=== PATIENT | male | born 1965 | race Caucasian/White ===

== ENCOUNTER 2023-08-11 11:23 | Emergency (ER) | payer MEDICARE, SELFPAY ==
[2023-08-11 11:23] VITALS: BMI 27.8
[2023-08-11 11:32] VITALS: BP 142/78
--- NOTE | 2023-08-11 13:23 | ED.GENMED ---
History of Present Illness
<BLAZE Menezes Last Filed: 08/11/23 20:23>
General
Chief Complaint: Eye Problems
Source: patient
Exam Limitations: none
Time Seen by Provider: 08/11/23 12:34
Nursing documentation reviewed up to this point in time: agreed with
History of Present Illness
History of Present Illness:
58 y/o M IDDM
HTN, bipolar disorder
here with pain and swelling of left eye x 2 days
says it started mildly in the middle of the night 2 night sago and has progressed to be moderate pain today with inability to open his left eye, surrounding swelilng
thought maybe it was allergies becuase it started with somem congestion in his sinuses on that side so he did take 2 doses of benadryl yesterday without improvement
he went to urgent care today and was sent in
no fever, chills
+ dipolopia with certain eye movements which are also painful
he has not had any headache, neck stiffness
no corrective lens use
sees double with looking up and laterally
Past History
<BLAZE Menezes Last Filed: 08/11/23 20:23>
Past History
ED Past Medical History: HTN, NIDDM and Psychiatric (bipolar)
ED Past Surgical History: Cholecystectomy, Orthopedic (lumbar discectomy) and Other (Gastric bypass)
Social History
Tobacco: Smoker
Alcohol: None
Drug: None
Personal:
Living: with family
Employment: Not employed
Family History
Family History: Other (Noncontributory)
Review of Systems
<BLAZE Menezes Last Filed: 08/11/23 20:23>
Review of Systems
Allergies reviewed?: Yes
All Other Systems: Not applicable
Phy Exam
<BLAZE Menezes Filed: 08/11/23 20:23>
Physical Exam
Physical Exam:
GENERAL: Alert , in no apparent distress
HEAD: NCAT
EYE: moderate to sevre L periorbital edema with faint erythema
i am able to manually open the eye to reveal severe chemosis of the sclera
normal looking pupil which is reactive
pt has some restrictive eye movement specifically medially and superiorly
slight tnedneress around the eye
NECK: Supple,full rom, nontender
ENT: o/p clr, mmm.
TM normal
CARDIAC: Regular rate and rhythm . no edema
LUNGS: Clear breath sounds bilaterally, no acute respiratory distress, no wheezes/rales/rhonchi
NEUROLOGICAL: Alert and orientedx 4,
SKIN: Warm and dry, skin intact. redness right orbital region
MUSCULOSKELETAL: No edema, well perfused.
PSYCH: Normal and appropriate interaction.
Course
<Vanessa Dumont PA-C - Last Filed: 08/11/23 20:23>
Orders/Labs/Results
Orders:
Orders
08/11/23 13:02
CT Orbits With Iv Contrast Urgent
Comment:
Reason For Exam: severe R sided eye swelling, EOM entrapment
08/11/23 13:03
Piperacillin/Tazo 3.375 Gram [Zosyn] 3.375 gram in 50 ml IV NOW
08/11/23 13:04
HYDROmorphone [Dilaudid] 0.5 mg IV NOW STA
08/11/23 13:34
Complete Blood Count/With Diff Urgent
Blood Culture Q30M
GONZALEZ Source: Blood/Venous
Specimen Description:
Blood Culture Q30M
GONZALEZ Source: Blood/Venous
Specimen Description:
08/11/23 14:33
Alcohol Routine
Basic Metabolic Panel Routine
08/11/23 14:39
HYDROmorphone [Dilaudid] 0.5 mg IV NOW STA
08/11/23 17:35
Visual Acuity- Treatment ONCE
08/11/23 17:40
Vancomycin [Vancocin] 2,000 mg 0.9% Sodium Chloride 500 ml [Nss] 500 ml IV NOW
08/11/23 17:55
HYDROmorphone [Dilaudid] 1 mg IV NOW STA
08/11/23 17:56
HYDROmorphone [Dilaudid] 1 mg .ROUTE .STK-MED ONE
08/11/23 18:42
MethylPREDNISolone PF [Solu-Medrol Pf] 125 mg IV NOW STA
08/11/23 19:35
Add On- LAB Urgent
Tests Added?: ALCOHOL
08/11/23 19:53
Fentanyl, Urine Urgent
Urine Drug Abuse Screen Urgent
Date Specimen was Collected: 08/11/23
Time Specimen was Collected: 19:51
08/11/23 20:12
0.9% Sodium Chloride 500 ml [Nss] 500 ml IV BOLUS
Abnormal Lab Results
08/11/23 08/11/23 08/11/23
13:34 14:33 19:53
WBC 13.4 H 10^3/uL
(4.8-10.8)
Abs Immat Gran (auto) 0.1 H 10^3/uL
(0-0.05)
Absolute Neuts (auto) 10.1 H 10^3/uL
(1.4-6.5)
Absolute Monos (auto) 1.0 H 10^3/uL
(0.1-0.6)
Neutrophils % 75.6 H %
(42.2-75.2)
Lymphocytes % 14.8 L %
(20.5-51.1)
Glucose 100 H mg/dl
(70-99)
Urine Opiates Screen Positive H
(Negative)
08/11/23 13:34
08/11/23 14:33
Vital Signs
Initial and Last Documented VS:
Initial Vital Signs
Pulse Resp BP Pulse Ox
90 20 142/78 97
08/11/23 11:32 08/11/23 11:32 08/11/23 11:32 08/11/23 11:32
Last Documented Vital Signs
Temp Pulse Resp BP Pulse Ox
97.2 F 76 20 136/71 99
08/11/23 18:53 08/11/23 18:53 08/11/23 18:53 08/11/23 18:53 08/11/23 18:53
<Bentley Yao MD - Last Filed: 08/11/23 13:50>
Orders/Labs/Results
Orders:
Orders
08/11/23 13:02
CT Orbits With Iv Contrast Urgent
Comment:
Reason For Exam: severe R sided eye swelling, EOM entrapment
08/11/23 13:03
Piperacillin/Tazo 3.375 Gram [Zosyn] 3.375 gram in 50 ml IV NOW
08/11/23 13:04
HYDROmorphone [Dilaudid] 0.5 mg IV NOW STA
08/11/23 13:34
Complete Blood Count/With Diff Urgent
Blood Culture Q30M
GONZALEZ Source: Blood/Venous
Specimen Description:
Blood Culture Q30M
GONZALEZ Source: Blood/Venous
Specimen Description:
08/11/23 14:33
Alcohol Routine
Basic Metabolic Panel Routine
08/11/23 14:39
HYDROmorphone [Dilaudid] 0.5 mg IV NOW STA
08/11/23 17:35
Visual Acuity- Treatment ONCE
08/11/23 17:40
Vancomycin [Vancocin] 2,000 mg 0.9% Sodium Chloride 500 ml [Nss] 500 ml IV NOW
08/11/23 17:55
HYDROmorphone [Dilaudid] 1 mg IV NOW STA
08/11/23 17:56
HYDROmorphone [Dilaudid] 1 mg .ROUTE .STK-MED ONE
08/11/23 18:42
MethylPREDNISolone PF [Solu-Medrol Pf] 125 mg IV NOW STA
08/11/23 19:35
Add On- LAB Urgent
Tests Added?: ALCOHOL
08/11/23 19:53
Fentanyl, Urine Urgent
Urine Drug Abuse Screen Urgent
Date Specimen was Collected: 08/11/23
Time Specimen was Collected: 19:51
08/11/23 20:12
0.9% Sodium Chloride 500 ml [Nss] 500 ml IV BOLUS
Abnormal Lab Results
08/11/23 08/11/23 08/11/23
13:34 14:33 19:53
WBC 13.4 H 10^3/uL
(4.8-10.8)
Abs Immat Gran (auto) 0.1 H 10^3/uL
(0-0.05)
Absolute Neuts (auto) 10.1 H 10^3/uL
(1.4-6.5)
Absolute Monos (auto) 1.0 H 10^3/uL
(0.1-0.6)
Neutrophils % 75.6 H %
(42.2-75.2)
Lymphocytes % 14.8 L %
(20.5-51.1)
Glucose 100 H mg/dl
(70-99)
Urine Opiates Screen Positive H
(Negative)
08/11/23 13:34
08/11/23 14:33
Vital Signs
Initial and Last Documented VS:
Initial Vital Signs
Pulse Resp BP Pulse Ox
90 20 142/78 97
08/11/23 11:32 08/11/23 11:32 08/11/23 11:32 08/11/23 11:32
Last Documented Vital Signs
Temp Pulse Resp BP Pulse Ox
97.2 F 76 20 136/71 99
08/11/23 18:53 08/11/23 18:53 08/11/23 18:53 08/11/23 18:53 08/11/23 18:53
<Vanessa Dumont PA-C - Last Filed: 08/11/23 20:23>
MDM/Problems Addressed
Differential Diagnosis Includes:
orbital cellulitis, proptosis, sinusitis, abscess, entrapment
MDM/Problems Addressed:
58 y/o M IDDM
here with 2 days worsening R orbital swelling with mild erythema, severe edema, diplopia with upward gaze, eye pain with movement
no fever
stable vitals
significant edema/mild erythema on exam
momderate eye pain
some limited eye movement with upward and medial gaze
normal pupil
chemosis
no sinus drainage appreciated
but suspicious of cellulitlis, pt was given vanc and zosyn pre-ct.
wbc elevated, normal bg
ct shows a bony tumor growth that likely was predisposing pt for sinusitis which is likely the cause of his orbital celluiltis
there was compression/inflammation of the rectus
i spoke with albert belcher eye doctor at [facility] who recommended eye pressure which was elevated on the right at 37/40 and 12 on the left eye
at that point she recommended a lateral canthotomy
i was able to consult opthalmologist DR wylie who came in to evaluate the patient and though at this time he did not initially think the canthotomy was necessary, he had a discussion with another eye doctor dr. rodriguez at [facility] who encouraged
the procedure to be performed
it was then performed by dr. wylie at bedside
following th e procedure, pt's eye pressure down to 28
pt tolerated prcoedure well
i then had multiple phone calls with the [facility] transfer center with the ENT physician Dr. Anne Thomas as well as from [facility] eye right of way man on-call who both felt the patient needed to be urgently transferred. They were unclear
about what service the patient would belong to and would ideally like to transfer him to the ER at [facility] however there were no beds and they were on divert except for traumas.
After much discussion, additionally with the medicine physician Dr. rodriguez from [facility] the [facility] eye team agreed to take him ER to ER so that the patient could be monitored overnight regarding his elevated eye pressures as the eye
emergency takes priority and I am unable to provide emergency care at this hospital overnight and a consult tomorrow
Patient will be transferred, he signed consent. He is medically stable. The [facility] eye team requested a alcohol level and a urine drug screen prior to transfer. Copies of his records will be given.
<Vanessa Dumont PA-C - Last Filed: 08/11/23 20:23>
*Critical Care Note
Total Time (30-74mins, 75-104mins- exclusive of procedures): 75
comment:
this patient required multiple consultants, managing his emergent eye condition with elevated intraocular pressures, in the setting of orbital cellulitis secondary to bacterial sinusitis; assisted with lateral canthotomy; multiple reevaulations and
lengthy discussion with outside specialists in order to transfer pt to higher level of care
ED Attending Note
<Vanessa Dumont PA-C - Last Filed: 08/11/23 20:23>
-
Portions of this chart may have been created with voice recognition software.� Occasional wrong word or��sound alike� substitutions may have occurred due to the inherent limitations of voice recognition software.
<Bentley Yao MD - Last Filed: 08/11/23 13:50>
ED Attending Note
Patient seen and examined by attending physician: Yes
I performed the substantive portion of visit, reviewed & personally made and approve the management plan that is documented in note by myself or WOJCIECH.: Yes
ED Attending Note:
58-year-old male right eye swelling pain and double vision is progressive since yesterday. No fever. No history of same. No trauma.
On exam patient is nontoxic. Obviously swollen right eye with the right eyelid swollen shut with mild erythema. No significant drainage. Significant conjunctival chemosis. Patient has decreased abduction decreased superior gaze and mild
decreased lateral gaze with double vision.
Impression concern for orbital cellulitis. Some of this almost has the appearance of an allergic reaction however this would not explain the double vision. Workup in progress including CT scan. Antibiotics ordered.
Discharge Plan
Departure
Patient Disposition: Acute Care Hospital
Patient with high blood pressure during this ER visit?: No
Condition: Fair
Covid-19: Not Applicable
Discharge Problem:
Cellulitis of right orbit
Prescriptions:
No Action
atenolol 50 MG tablet
25 mg PO BID
dicloxacillin 500 mg Capsule
500 mg PO BID
lamotrigine [Lamictal] 200 mg Tablet
200 mg PO HS
venlafaxine [Effexor] 75 mg Tablet
75 mg PO BID
atorvastatin [Lipitor] 10 mg Tablet
10 mg PO HS
lamotrigine [Lamictal] 25 mg Tablet
75 mg PO DAILY
ibuprofen [Advil] 200 mg Tablet
200 mg PO Q6HPRN PRN (Reason: mild pain)
fluticasone propionate [Flonase] 50 mcg/actuation [place],Suspension
1 spray INTRANASAL DAILY
aripiprazole [Abilify] 2 mg Tablet
2 mg PO DAILY
insulin glargine [Lantus Solostar U-100 Insulin] 100 unit/mL (3 mL) Insulin Pen
8 unit SC HS
Referrals:
Bentley Arriaga MD [Family Provider] -
Hospital Transfer
Other hospital: [facility]
I certify that the patient requires transfer: Yes
Discussed case with accepting physician: roshan
Reason for transfer: higher level of care
Interventions
Interventions:
*Risk Screen - Suicide Last Done: 08/11/23 11:32
*General Assessment Last Done: 08/11/23 11:32
*Neglect/Abuse Screening Last Done: 08/11/23 11:32
ED- Fall Risk Assessment Last Done: 08/11/23 18:53
*ED COVID-19 Vaccine History Last Done: 08/11/23 18:53
Discharge Date and Time
Print Language: MALTESE
[2023-08-11] MEDS: ZOSYN 50 IV (13:27)
[2023-08-11] MEDS: DILAUDID 0.5 MG IV ×2 (13:29→14:50)
[2023-08-11 14:02] LABS: % Basophils 0.4 % (0-2); % Eosinophils 1.1 % (0-6); % Immature Granulocytes 0.5 % (0-0.5); % Lymphocytes 14.8 % (20.5-51.1); % Monocytes 7.6 % (1.7-9.3); % Neutrophils 75.6 % (42.2-75.2); Absolute Basophils 0.1 10^3/uL (0-0.2); Absolute Eosinophils 0.2 10^3/uL (0-0.7); Absolute Immature Granulocytes 0.1 10^3/uL (0-0.05); Absolute Neutrophils 10.1 10^3/uL (1.4-6.5); Hematocrit 48.1 % (39.0-52.0); Hemoglobin 16.5 g/dL (13.0-18.0); Mean Corp Hgb Conc. 34.3 g/dL (33.0-37.0); Mean Corpuscular Hgb 30.3 pg (27.0-31.0); Mean Corpuscular Volume 88.4 fL (80.0-94.0); Mean Platelet Volume 9.9 fL (7.4-10.4); Nucleated Red Blood Cells % 0 % (-); Platelet Count 260 10^3/uL (130-400); Red Blood Cell Count 5.44 10^6/uL (4.70-6.10); Red Cell Dist. Width 12.5 % (11.5-14.5); White Blood Cell Count 13.4 10^3/uL (4.8-10.8)
[2023-08-11 14:56] LABS: Blood Urea Nitrogen 13 mg/dl (9-20); Calcium 9.1 mg/dl (8.4-10.2); Carbon Dioxide 25 mmol/L (22-30); Chloride 106 mmol/L (98-107); Estimated Creatinine Clearance 92 ml/min; Glucose 100 mg/dl (70-99); Sodium 139 mmol/L (135-145); eGFR > 60.00
[2023-08-11] MEDS: VANCOCIN 540 MG IV (17:59)
[2023-08-11] MEDS: DILAUDID 1 MG IV (17:59)
[2023-08-11 18:53] VITALS: BP 136/71
[2023-08-11] MEDS: SOLU-MEDROL PF 125 MG IV (19:18)
--- NOTE | 2023-08-11 19:21 | CON.OPH ---
Consultation
-
Date/Time Consultation Requested: 08/11/23 5:50PM
Date/Time Consultation Performed: 08/11/23 6:15PM
Requesting Provider: ER
Performing Provider: Roberto Sierra MD
Reason for Consultation: Acute Right Orbital swelling
Consultation - Ophthalmology
Ophthalmologic History
Relevant Medical History: 58 yo male with chronic diabetes, controlled with insulin complains of acute onset of pain above his right eye 2 days ago that has quickly progressed. Today he woke up with his eye nearly swollen shut and much more
uncomfortable. Of note, he sttes his right eye has been off for 6-12 months with 'levels of Vision' that he clarifies as double vision on prompting but this has been very slowly getting worse. He notes his sugars are under control and he otherwise
feels ok.
Past Ocular History: None
Vision
Vision, without correction, distant Right Eye: 20/30
Vision, without correction, distant Left Eye: 20/25-
Physical Exam
Pupils - equal, round and reactive bilaterally; pupils pinpoint due to narcotics for pain
Extraocular movements - 85% reduction in all directions of right eye but intact and full on left
Confrontation Visual Lee - full to finger count / hand motion bilaterally
Color Plates: 12/12 OD
Pen Light Exam
Lids and adnexa -
RIGHT: Acute proptosis right eye with erythema, lid edema and tenderness; decreased retropulsion but globe ballotable;
LEFT: healthy and normal
Cornea clear bilaterally
Conjunctiva / Sclera
RIGHT: 2+chemosis 360, injected
LEFT: white and quiet
Anterior chamber deep and formed
T (tonopen) 36 OD, 16 OS
Lens clear bilaterally
Dilated fundus exam - deferrd to monitor pupils
Face exam: right proptosis with erythema and edema; edentulous with normal oral mucosa, low grade rhinitis with no eschar or drainage
Studies Reviewed:
-CBC with elevated white count with left shift
-CT Scan orbits/sinus demonstrates large frontal sinus recess 2cm Osteoma into medial right orbit with secondary obstruction of frontal sinus, enlarged medial rectus and early right orbital cellulitis medial and superomedial but no definitive
abscess. Skull base is intact but osteoma abutts/involves area. There is also scattered sinus disease bilaterally in the ethmoids as well as a mucus retention cyst in the left inferior maxillary sinus
Assessment / Plan
Assessment/Plan:
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 This is a longstanding benign process that has slowly been worsening and responsible for chronic proptosis and double vision. However it is
now blocking sinus function with secondary acute infection. Discussed with patient and will need image guided surgery to remove
2) Acute right Orbital bacterial cellulitis secondary to sinus obstruction from osteoma with acute onset over the past 48 hours. His vision, pupils and color plates are all intact.
-Started on broad spectrum IV Vancomycin and Zosyn.
-Recommend adding IV steroids to help with swelling
-Lateral canthotomy/cantholysis performed as an insurance process (IOP reduced to 28mm)
-Transfer to ENT at tertiary center for sinus surgery and osteoma removal.
Discussed with ER and ENT team at
Follow Up:
Admit and transfer LORE
[2023-08-11 19:53] LABS: Alcohol None Detected
[2023-08-11 20:15] LABS: Amphetamines Negative (Negative); Barbiturates Negative (Negative); Benzodiazepines Negative (Negative); Buprenorphine Negative (Negative); Cocaine Negative (Negative); Marijuana Negative (Negative); Methadone Negative (Negative); Methamphetamines Negative (Negative); Opiates Positive (Negative); Phencyclidine Negative (Negative); Tricyclic Antidepressants Negative (Negative)
[2023-08-11 20:34] LABS: Fentanyl, Urine Negative (Negative)
[2023-08-11] MEDS: NSS 500 IV (21:38)
== END 2023-08-11 22:40 | disposition short-term general hospital (02) ==
LOC: EMR 11:23
PROVIDERS: Physician Assistant; EMERGENCY PHYSICIAN Emergency Medicine; FAMILY PHYSICIAN Internal Medicine; OTHER PHYSICIAN Ophthalmology Ophthalmic Plastic and Reconstructive Surgery
DX: H05.011 Cellulitis of right orbit (principal); H53.2 Diplopia; H57.11 Ocular pain, right eye; R51.9 Headache, unspecified; E11.9 Type 2 diabetes mellitus without complications; I10 Essential (primary) hypertension; F31.9 Bipolar disorder, unspecified; F32.A Depression, unspecified; F17.200 Nicotine dependence, unspecified, uncomplicated; Z79.4 Long term (current) use of insulin; Z90.49 Acquired absence of other specified parts of digestive tract; Z98.84 Bariatric surgery status; Z98.1 Arthrodesis status; Z88.1 Allergy status to other antibiotic agents; Z88.3 Allergy status to other anti-infective agents
CPT/HCPCS: 67715; 99291; 99292; 96365; 96366; 96367; 96375 ×2; 96376 ×2; 70481; 80048; 80306; 80307; 82077; 85025; 87040; Q9967